=== PATIENT | male | born 1970 | race Caucasian/White ===

== ENCOUNTER 2024-02-07 19:35 | Emergency (ER) | payer SELFPAY ==
[~2024-02-07] VITALS: Ht 167.6 cm; Wt 70.0 kg
[2024-02-07 19:55] VITALS: O2SAT 97
[2024-02-07] MEDS: KETOROLAC 15MG/ML VIAL IM ONE (20:15)
[2024-02-07] MEDS: CYCLOBENZAPRINE 10MG TABLET PO ONE (20:15)
[2024-02-07] MEDS ORDERED: LIDO700A15 TP (21:33)
[2024-02-07] MEDS ORDERED: CYCL5TAB MT (21:33)
[2024-02-07] MEDS ORDERED: NAPR-1176 MT (21:33)
[2024-02-07 22:00] VITALS: BP 130/64; PULSE 65; RESP 16; TEMP 36.61404; O2SAT 98
[2024-02-08] MEDS ORDERED: LIDOCAINE 5% PATCH TOP SCH (09:00)
== END 2024-02-07 22:00 | disposition home or self-care (01) ==
LOC: ER 19:35
DX: M54.2 Cervicalgia (principal)
CPT/HCPCS: 96372; 99283; J1885; Z7610